=== PATIENT | female | born 1965 | race Caucasian/White ===

== ENCOUNTER → 2017-06-25 | Outpatient (CLI) | payer OTHER ==
[~2017-06-25] MED LIST: ALEN35TA42 PO; ASPI1TAB48 PO; ATOR-24 PO; CLOP1TAB15 PO; DAPA1TAB7 PO; LOSA1TAB PO; LVMIPEN SQ; METO100T44 PO; NTRGSL/4 UT; SERT50TA PO
[2017-06-25 16:48] LABS: BASO % 0.5 %; BASO ABS # 0.05 K/uL (0-0.2); EOS % 0.8 %; EOS ABS # 0.08 K/uL (0-0.5); HEMATOCRIT 47.3 % (37-47); HEMOGLOBIN 16.5 g/dL (12.0-16.0); IG# 0.02 K/uL (0.00-0.02); LYMPH % 15.5 %; LYMPH ABS # 1.49 K/uL (1.2-3.4); MEAN CELL VOLUME 89.6 fL (80-100); MEAN CORPUSCULAR HEMOGLOBIN 31.3 pg (25-34); MEAN CORPUSCULAR HGB CONC 34.9 g/dl (32-36); MEAN PLATELET VOLUME 10.5 fL (7.4-10.4); MONO % 5.2 %; NEUT % 77.8 %; NEUT ABS # 7.49 K/uL (1.4-6.5); PLATELET COUNT 378 K/uL (130-400); RED CELL DISTRIBUTION WIDTH CV 12.7 % (11.5-14.5); RED CELL DISTRIBUTION WIDTH SD 41.7 fL (36.4-46.3); WHITE BLOOD COUNT 9.63 K/uL (4.8-10.8)
[2017-06-25 17:28] LABS: ALBUMIN 4.1 gm/dl (3.4-5.0); ALKALINE PHOSPHATASE 89 U/L (45-117); ALT/SGPT 31 U/L (12-78); AST/SGOT 15 U/L (15-37); BLOOD UREA NITROGEN 16 mg/dl (7-18); CALCIUM 9.6 mg/dl (8.5-10.1); CARBON DIOXIDE 23 mmol/L (21-32); CHOLESTEROL 240 mg/dl (0-200); CREATININE 0.64 mg/dl (0.60-1.20); GLUCOSE 443 mg/dl (70-99); LDL CHOLESTEROL CALCULATED 145 mg/dl; POTASSIUM 4.2 mmol/L (3.5-5.1); SODIUM 131 mmol/L (136-145); TOTAL PROTEIN 7.8 gm/dl (6.4-8.2)
[2017-06-26 05:50] LABS: HEMOGLOBIN A1C 13.4 % (4.5-5.6)
== END | disposition home or self-care (01) ==
LOC: C.LABBFT 11:26
PROVIDERS: ATTEND Internal Medicine
DX: Z00.00 Encounter for general adult medical examination without abnormal findings (principal); E11.9 Type 2 diabetes mellitus without complications; E78.5 Hyperlipidemia, unspecified; I10 Essential (primary) hypertension

== ENCOUNTER 2017-07-08 21:20 | Observation (INO) | payer OTHER ==
[~2017-07-08] VITALS: Ht 149.9 cm; Wt 50.2 kg
[2017-07-08 22:24] LABS: HEMOGLOBIN 16.1 g/dL (12.0-16.0); MEAN CELL VOLUME 90.2 fL (80-100); MEAN CORPUSCULAR HEMOGLOBIN 31.6 pg (25-34); MEAN PLATELET VOLUME 10.1 fL (7.4-10.4); PLATELET COUNT 318 K/uL (130-400); RED CELL DISTRIBUTION WIDTH CV 12.6 % (11.5-14.5); RED CELL DISTRIBUTION WIDTH SD 41.5 fL (36.4-46.3)
--- NOTE | 2017-07-08 22:31 | DIAGNOSTIC IMAGING REPORT ---
CHEST ONE VIEW PORTABLE CLINICAL HISTORY: Atypical chest pain COMPARISON STUDY: No previous studies for comparison. FINDINGS: The cardiac and mediastinal contours are normal. There is no evidence of focal pulmonary consolidation. There is no evidence of failure. No pleural effusions are visualized.[ There is a coronary artery stent versus coronary artery calcification. IMPRESSION: No active disease in the chest. Electronically signed by: Joaquim Garcia M.D. 07/08/2017 10:30 PM Dictated Date/Time: 07/08/2017 10:29 PM
[2017-07-08 22:38] LABS: PTT PATIENT 24.4 SECONDS (21.0-31.0)
[2017-07-08] MEDS ORDERED: ASPIRIN 324 MG CHEW PO STA (22:47)
[2017-07-08] MEDS ORDERED: NITROGLYCERIN 0.4 MG SL PER TAB CHARGE SL STA (22:47)
[2017-07-08 22:48] LABS: CALCIUM 9.5 mg/dl (8.5-10.1); CKMB 0.6 ng/ml (0.5-3.6); CREATININE 0.53 mg/dl (0.60-1.20); POTASSIUM 3.8 mmol/L (3.5-5.1); TOTAL PROTEIN 7.6 gm/dl (6.4-8.2)
[2017-07-08] MEDS ORDERED: PATIENT'S ALLERGY INFO NEEDS ENTERED STA (23:06)
[2017-07-09] VITALS (7 sets, daily range): BP systolic 94–117; BP diastolic 61–68; PULSE 68–77; TEMP 36.4–36.9; O2SAT 95–96; BMI 22.5
[2017-07-09] MEDS ORDERED: ACETAMINOPHEN 500 MG TAB PO ONE (00:04)
[2017-07-09] MEDS ORDERED: LOSA1TAB PO (00:35)
[2017-07-09] MEDS ORDERED: METO100T44 PO (00:36)
[2017-07-09] MEDS ORDERED: ATOR-24 PO (00:37)
[2017-07-09] MEDS ORDERED: LVMIPEN SQ (00:38)
[2017-07-09] MEDS ORDERED: SERT50TA PO (00:39)
[2017-07-09] MEDS ORDERED: ALEN1TAB21 PO (00:40)
[2017-07-09] MEDS ORDERED: DAPA1TAB7 PO (00:42)
[2017-07-09] MEDS ORDERED: NTRGSL/4 UT (00:43)
[2017-07-09] MEDS ORDERED: ASPI1TAB48 PO (00:43)
[2017-07-09] MEDS ORDERED: CLOP1TAB15 PO (00:46)
[2017-07-09] MEDS ORDERED: LORAZEPAM 0.5 MG TAB SL STA (01:13)
[2017-07-09] MEDS ORDERED: MAGNESIUM HYDROXIDE SUSP 30 ML UDC PO PRN (01:15)
[2017-07-09] MEDS ORDERED: POLYETHYLENE (MIRALAX) 17 GM PACK PO PRN (01:15)
[2017-07-09] MEDS ORDERED: ACETAMINOPHEN 325 MG TAB PO PRN (01:15)
[2017-07-09] MEDS ORDERED: ZOLPIDEM TARTRATE 5 MG TAB PO PRN (01:15)
[2017-07-09] MEDS ORDERED: MoRPHine SULFATE 2 MG/ML CARP IV PRN (01:15)
[2017-07-09] MEDS ORDERED: NITROGLYCERIN 0.4 MG SL PER TAB CHARGE SL PRN (01:15)
[2017-07-09] MEDS ORDERED: ALUMINUM/MAGNESIUM/SIMETH (MAALOX MAX) 30 ML UDC PO PRN (01:15)
[2017-07-09] MEDS ORDERED: ONDANSETRON INJ 2 MG/ML 2 ML VIAL IV PRN (01:15)
--- NOTE | 2017-07-09 01:53 | History and Physical ---
History & Physical Date & Time of Service: Jul 09, 2017 at 01:31 Chief Complaint: Chest Pain Primary Care Physician: Brooke Cortes M.D. History of Present Illness Source: patient 52 y/o F Hx DM, CAD - [place] 2014 - single stent to [facility] [place]. Recently relocated form [place]. Developed L CP with radiation into L arm, palpitations and a feeling of indigestion. She has a hard time describing her pain and describes more of a strange sensation in her chest. In the ER her initial trop is normal and her pain had resolved. Her EKG however, initially showed what is likely an accelerated junctional rhythm with a RBBB. A second EKG reverted to a sinus rhythm. She has exhibited both on monitor without recurrence of CP. She denies CP, N/V, diaphoresis. The pt states that she is currently compliant with medications, however, she admits to a recent period of noncompliance for 5 months due to financial difficulties. Past Medical/Surgical History 1) CAD - [place] - stent to [facility] [place] 2014 2) IDDM Family History Mother with premature CAD Social History Smoking Status: Never Smoker Allergies Coded Allergies: No Known Allergies (Unverified , 07/09/17) Home Medications Scheduled Alendronate Sodium (Alendronate Sodium), 35 MG PO WK Aspirin (Aspirin Low Dose), 81 MG PO DAILY Atorvastatin (Lipitor), 40 MG PO HS Clopidogrel (Plavix), 75 MG PO DAILY Dapagliflozin-Metformin HCl (Xigduo Xr 10-1000 mg), 1 TAB PO DAILY Insulin Detemir (Levemir Flextouch), 30 SQ HS Losartan Potassium (Cozaar), 25 MG PO DAILY Metoprolol Succ (Toprol Xl) (Toprol-Xl ), 100 MG PO DAILY Sertraline (Zoloft), 50 MG PO DIRECTED Scheduled PRN Nitroglycerin (Nitrostat), 0.4 MG UT PRN PRN for chest pain Review of Systems Constitutional: No fever, No chills, No sweats Eyes: No worsening of vision ENT: No hearing loss, No unusual epistaxis, No nasal symptoms Respiratory: No cough, No sputum, No wheezing Cardiovascular: + chest pain, + palpitations Abdomen: + problem reported (Indigestion reported), No pain Musculoskeletal: No joint pain Genitourinary - Female: No dysuria, No urinary frequency Neurologic: No memory loss, No paralysis, No weakness Psychiatric: No depression symptoms Endocrine: No fatigue Hematologic / Lymphatic: No abnormal bleeding/bruising Integumentary: No rash Allergic / Immunologic: No environmental allergies Physical Exam Vital Signs Date Time Temp Pulse Resp B/P (MAP) Pulse Ox O2 Delivery O2 Flow Rate FiO2 07/09/17 01:00 75 12 102/73 95 Room Air 07/09/17 00:30 81 17 113/83 95 Room Air 07/09/17 00:00 77 15 111/79 95 Room Air 07/08/17 23:30 89 23 117/88 96 Room Air 07/08/17 23:28 88 07/08/17 23:24 87 07/08/17 23:05 94 16 94/66 95 Room Air 07/08/17 22:11 94 07/08/17 21:25 36.9 91 20 110/74 97 Room Air General Appearance: WD/WN, no apparent distress, + pertinent finding (Thin, middle-aged female - sitting in bed and eating a chicken teriKelly Van Gogh [employer]our hogi) Head: normocephalic Eyes: normal inspection ENT: normal ENT inspection, pharynx normal Neck: supple, no JVD Respiratory/Chest: chest non-tender, lungs clear, normal breath sounds Cardiovascular: regular rate, rhythm, no edema, no gallop, no JVD, no murmur Abdomen/GI: normal bowel sounds, non tender, soft Back: normal inspection, no CVA tenderness, no muscle spasm, normal range of motion Extremities/Musculoskelatal: normal inspection, no calf tenderness, normal capillary refill, no pedal edema, normal range of motion 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, no motor/sensory deficits, alert, oriented x 3 Skin: normal color Diagnostics Laboratory Results Results Past 24 Hours Test 07/08/17 22:05 07/08/17 22:16 Range/Units White Blood Count 8.80 4.8-10.8 K/uL Red Blood Count 5.10 4.2-5.4 M/uL Hemoglobin 16.1 12.0-16.0 g/dL Hematocrit 46.0 37-47 % Mean Corpuscular Volume 90.2 80-100 fL Mean Corpuscular Hemoglobin 31.6 25-34 pg Mean Corpuscular Hemoglobin Concent 35.0 32-36 g/dl RDW Standard Deviation 41.5 36.4-46.3 fL RDW Coefficient of Variation 12.6 11.5-14.5 % Platelet Count 318 130-400 K/uL Mean Platelet Volume 10.1 7.4-10.4 fL Prothrombin Time 10.2 9.0-12.0 SECONDS Prothromb Time International Ratio 1.0 0.9-1.1 Activated Partial Thromboplast Time 24.4 21.0-31.0 SECONDS Partial Thromboplastin Ratio 0.9 Sodium Level 136 136-145 mmol/L Potassium Level 3.8 3.5-5.1 mmol/L Chloride Level 101 98-107 mmol/L Carbon Dioxide Level 24 21-32 mmol/L Anion Gap 10.0 3-11 mmol/L Blood Urea Nitrogen 17 7-18 mg/dl Creatinine 0.53 0.60-1.20 mg/dl Est Creatinine Clear Calc Drug Dose 85.7 ml/min Estimated GFR () 127.4 Estimated GFR (Non- 109.9 BUN/Creatinine Ratio 32.8 10-20 Random Glucose 182 70-99 mg/dl Calcium Level 9.5 8.5-10.1 mg/dl Total Bilirubin 0.4 0.2-1 mg/dl Aspartate Amino Transf (AST/SGOT) 16 15-37 U/L Alanine Aminotransferase (ALT/SGPT) 36 12-78 U/L Alkaline Phosphatase 80 45-117 U/L Total Creatine Kinase 67 26-192 U/L Creatine Kinase MB 0.6 0.5-3.6 ng/ml Creatine Kinase MB Ratio 0.9 0-3.0 Total Protein 7.6 6.4-8.2 gm/dl Albumin 4.0 3.4-5.0 gm/dl Globulin 3.6 2.5-4.0 gm/dl Albumin/Globulin Ratio 1.1 0.9-2 Thyroid Stimulating Hormone (TSH) 3.780 0.300-4.500 uIu/ml Bedside Troponin I < 0.030 0-0.045 ng/ml EKG Initial EKG - reg rhythm, RBBB - cannot discern P wvs - likely junctional - rate 90BPM Second EKG - Sinus - RBBB is absent Impression Assessment and Plan 52 y/o F Hx DM, CAD - [place] 2014 - single stent to [facility] [place]. Recently relocated form [place]. Developed L CP with radiation into L arm, palpitations and a feeling of indigestion. She has a hard time describing her pain and describes more of a strange sensation in her chest. In the ER her initial trop is normal and her pain had resolved. Her EKG however, initially showed what is likely an accelerated junctional rhythm with a RBBB. A second EKG reverted to a sinus rhythm. She has exhibited both on monitor without recurrence of CP. She denies CP, N/V, diaphoresis. 1) CAD - CP - abnormal rhythm - pt is admitted to telemetry. We will obtain an echo and request a cardio consult, Her troponin will be trended, She is placed on ASA and a statin - will hold her B clyde due to her initial EKG. 2) DM - placed on SS with PM Lantus Full code - Lovenox prophylaxis Total time for this admit including review of labs, meds, imaging - discussion with pt and ER attending - 35 min Level of Care Telemetry Resuscitation Status FULL RESUSCITATION VTE Prophylaxis VTE Risk Assessment Done? Y/N: Yes Risk Level: Low Given or contraindicated: Enoxaparin (Lovenox)SQ
[2017-07-09] MEDS ORDERED: IV FLUIDS COMPLETED PRN (02:30)
[2017-07-09] MEDS ORDERED: GLUCOSE 40% GEL 15 GM TUBE PO PRN (05:30)
[2017-07-09] MEDS ORDERED: GLUCAGON FOR INJ 1 MG VIAL SQ PRN (05:30)
[2017-07-09] MEDS ORDERED: GLUCOSE 10 TABS/TUBE PO PRN (05:30)
[2017-07-09] MEDS ORDERED: DEXTROSE 50% 50 ML SYR IV PRN (05:30)
[2017-07-09] MEDS: INSULIN ASPART 100 UNITS/ML 3 ML PEN SC SCH ×4 (06:08→20:44)
--- NOTE | 2017-07-09 06:53 | EMERGENCY ROOM VISIT NOTE ---
History First contact with patient: 22:26 Chief Complaint: CHEST PAIN Stated Complaint: CHEST PAIN, EKG ABNORMALITY Nursing Triage Summary: pt reports started with mid sternal cp at 1900 that radiates into L arm reports increased exertional sob and feels like heart burn History of Present Illness The patient is a 52 year old female who presents to the Emergency Room with complaints of substernal chest pain/pressure which started approximately 3 hours ago. The patient states that she has a feeling of pressure in the center of her chest with associated heartburn. She states the discomfort comes and goes and is not associated with exertion. She rates the discomfort a 6/10. She states that the pain radiates into her left upper arm. The patient reports history of [place] in 2014 with stenting. This was done in [place]. She is an insulin dependent diabetic. She has not seen cardiology here but is scheduled with [facility] cardiology in 2 days. Patient denies shortness of breath, abdominal pain, nausea or vomiting. Review of Systems A complete 10 point review of systems was reviewed with the patient with pertinent positives and negatives as per history of present illness. All else were negative. Past Medical/Surgical History Medical Problems: (1) Chest pain (2) Diabetes mellitus (3) EKG abnormality (4) History of myocardial infarction Social History Smoking Status: Never Smoker Housing Status: lives with family Current/Historical Medications Scheduled Alendronate Sodium (Alendronate Sodium), 35 MG PO WK Aspirin (Aspirin Low Dose), 81 MG PO DAILY Atorvastatin (Lipitor), 40 MG PO HS Clopidogrel (Plavix), 75 MG PO DAILY Dapagliflozin-Metformin HCl (Xigduo Xr 10-1000 mg), 1 TAB PO DAILY Insulin Detemir (Levemir Flextouch), 30 SQ HS Losartan Potassium (Cozaar), 25 MG PO DAILY Metoprolol Succ (Toprol Xl) (Toprol-Xl ), 100 MG PO DAILY Sertraline (Zoloft), 50 MG PO DIRECTED Scheduled PRN Nitroglycerin (Nitrostat), 0.4 MG UT PRN PRN for chest pain Physical Exam Vital Signs Date Time Temp Pulse Resp B/P (MAP) Pulse Ox O2 Delivery O2 Flow Rate FiO2 07/09/17 01:00 75 12 102/73 95 Room Air 07/09/17 00:30 81 17 113/83 95 Room Air 07/09/17 00:00 77 15 111/79 95 Room Air 07/08/17 23:30 89 23 117/88 96 Room Air 07/08/17 23:28 88 07/08/17 23:24 87 07/08/17 23:05 94 16 94/66 95 Room Air 07/08/17 22:11 94 07/08/17 21:25 36.9 91 20 110/74 97 Room Air Physical Exam VITALS: Vitals are noted on the nurse's note and reviewed by myself. Vital signs stable. GENERAL: This is a 52-year-old female, in no acute distress, nondiaphoretic, well-developed well-nourished. SKIN: The skin was without rashes. EARS: External auditory canals clear, tympanic membranes pearly gutierrez without erythema or effusion bilaterally. EYES: Pupils equal round and reactive to light and accommodation. MOUTH: Mucous membranes moist. Tonsils are not enlarged. Pharynx without erythema or exudate. NECK: Supple without nuchal rigidity. No lymphadenopathy. HEART: Regular rate and rhythm without murmurs gallops or rubs. LUNGS: Clear to auscultation bilaterally without wheezes, rales or rhonchi. No retractions or accessory muscle use. ABDOMEN: Positive bowel sounds x 4. Soft, nontender to palpation. MUSCULOSKELETAL: Strength 5/5 throughout. NEURO: Patient was alert and oriented to person place and time. Medical Decision & Procedures ER Provider Diagnostic Interpretation: CHEST ONE VIEW PORTABLE CLINICAL HISTORY: Atypical chest pain COMPARISON STUDY: No previous studies for comparison. FINDINGS: The cardiac and mediastinal contours are normal. There is no evidence of focal pulmonary consolidation. There is no evidence of failure. No pleural effusions are visualized.[ There is a coronary artery stent versus coronary artery calcification. IMPRESSION: No active disease in the chest. Laboratory Results 07/08/17 22:05 07/08/17 22:05 Test 07/08/17 22:05 07/08/17 22:16 Red Blood Count 5.10 M/uL (4.2-5.4) Mean Corpuscular Volume 90.2 fL (80-100) Mean Corpuscular Hemoglobin 31.6 pg (25-34) Mean Corpuscular Hemoglobin Concent 35.0 g/dl (32-36) RDW Standard Deviation 41.5 fL (36.4-46.3) RDW Coefficient of Variation 12.6 % (11.5-14.5) Mean Platelet Volume 10.1 fL (7.4-10.4) Prothrombin Time 10.2 SECONDS (9.0-12.0) Prothromb Time International Ratio 1.0 (0.9-1.1) Activated Partial Thromboplast Time 24.4 SECONDS (21.0-31.0) Partial Thromboplastin Ratio 0.9 Anion Gap 10.0 mmol/L (3-11) Est Creatinine Clear Calc Drug Dose 85.7 ml/min Estimated GFR () 127.4 Estimated GFR (Non- 109.9 BUN/Creatinine Ratio 32.8 (10-20) Calcium Level 9.5 mg/dl (8.5-10.1) Total Bilirubin 0.4 mg/dl (0.2-1) Aspartate Amino Transf (AST/SGOT) 16 U/L (15-37) Alanine Aminotransferase (ALT/SGPT) 36 U/L (12-78) Alkaline Phosphatase 80 U/L (45-117) Total Creatine Kinase 67 U/L (26-192) Creatine Kinase MB 0.6 ng/ml (0.5-3.6) Creatine Kinase MB Ratio 0.9 (0-3.0) Total Protein 7.6 gm/dl (6.4-8.2) Albumin 4.0 gm/dl (3.4-5.0) Globulin 3.6 gm/dl (2.5-4.0) Albumin/Globulin Ratio 1.1 (0.9-2) Thyroid Stimulating Hormone (TSH) 3.780 uIu/ml (0.300-4.500) Bedside Troponin I < 0.030 ng/ml (0-0.045) Medications Administered Medications (Trade) Dose Ordered Sig/Colton Route Start Time Stop Time Status Last Admin Dose Admin Aspirin (Aspirin Chew) 324 mg NOW STAT PO 07/08/17 22:47 07/08/17 22:49 DC 07/08/17 23:04 324 MG Miscellaneous Information (Patient'S Allergy Info Needs Entered) 1 ea ONE STAT N/A 07/08/17 23:06 07/08/17 23:07 DC 07/08/17 23:13 1 EA Acetaminophen (Tylenol Tab) 1,000 mg STK-MED ONCE PO 07/09/17 00:04 07/09/17 00:05 DC 07/09/17 00:06 1,000 MG Lorazepam (Ativan Tab) 0.5 mg NOW STAT SL 07/09/17 01:13 07/09/17 01:14 DC 07/09/17 01:19 0.5 MG ECG Indication: chest pain Rate (beats per minute): 90 Rhythm: other (wide QRS; possible junctional rhythm) Findings: RBBB Change: no significant change Medical Decision Differential diagnosis includes acute coronary syndrome, pulmonary embolism, pneumothorax, pericarditis, myocarditis, endocarditis, anxiety, musculoskeletal pain, GERD, costochondritis, pneumonia, among others. The patient is a 52-year-old female who presents today complaining of substernal chest discomfort. Labs revealed no leukocytosis, anemia or concerning electrolyte abnormalities. Initial troponin was negative. Chest x- ray unremarkable. Patient's initial EKG shows a wide QRS regular rhythm with right bundle branch block at a rate of 90 bpm. On the monitor, patient does have runs of normal sinus rhythm which last for 5-10 seconds at a time before she returns to the abnormal rhythm. After the patient had been here for 1-2 hours, she did switch to a normal sinus rhythm but continued to have short runs of abnormal rhythms. An EKG was performed which showed a normal sinus rhythm at 70 bpm with no evidence of right bundle branch block. The patient did report intermittent symptoms which seem to correlate with abnormal rhythms on the monitor. I did consult Dr. Lopez of cardiology who unfortunately was unable to view the patient's EKG. The patient was admitted to the medical service for further evaluation and treatment. Medication Reconcilliation Current Medication List: was personally reviewed by me Blood Pressure Screening Patient's blood pressure: Normal blood pressure Impression Primary Impression: Abnormal EKG Additional Impression: Chest pain Departure Information Dispostion Still a Patient Referrals Brooke Cortes M.D. (PCP) Forms Call Back Authorization, HOME CARE DOCUMENTATION FORM, IMPORTANT VISIT INFORMATION Patient Instructions [facility] Problem Qualifiers Additional Impression:
[2017-07-09] MEDS ORDERED: SERTRALINE HCL 50 MG TAB PO SCH (09:00)
[2017-07-09] MEDS: METOPROLOL SUCC 50MG EXT REL TAB PO SCH (09:28)
[2017-07-09] MEDS: CLOPIDOGREL BISULFATE 75 MG TAB PO SCH (09:29)
[2017-07-09] MEDS: ASPIRIN 81 MG ECTAB PO SCH (09:29)
[2017-07-09] MEDS: LOSARTAN POTASSIUM 25 MG TAB PO SCH (09:29)
[2017-07-09] MEDS: ENOXAPARIN 40 MG/0.4 ML SYR SC SCH (09:32)
--- NOTE | 2017-07-09 13:27 | Hospitalist Progress Note ---
Hospitalist Progress Note Date of Service Jul 09, 2017. (Edilma Montes PA-C) Subjective Pt evaluation today including: conversation w/ patient, conversation w/ family , physical exam, chart review, lab review, review of studies Pain: None PO Intake: NPO Voiding: no voiding problems The patient was seen and examined this morning. Pt reports feeling well today. She denies any chest pain overnight, no shortness of breath or palpitations. She does report her initial sx felt like nausea/indigestion substernally and this is how her other heart attack felt in 2014. She was doing the dishes when the sensation came on, and then sat down and the sx persisted. There was no radiation into her jaw, back or arms. She has been taking her medications as prescribed. Interestingly, she had been on zoloft, cymbalta and another medication for depression and anxiety and stopped everything about 6 months ago. She was restarted 2 weeks ago on zoloft alone. She does admit to palpitations occasionally but that this is normally under stress. She used to smoke 0.5 ppd x 20 years, but quit 3 years ago. Family hx includes mother with heart disease. ROS: admits to slight headache. Denies visual disturbances, no chest pain, sob, abd pain, n/v/d/c. All other ROS reviewed and negative otherwise. (Edilma Montes, CROW) Objective Vital Signs Date Time Temp Pulse Resp B/P (MAP) Pulse Ox O2 Delivery O2 Flow Rate FiO2 07/09/17 12:03 96 Room Air 07/09/17 12:01 36.7 68 16 99/66 (77) 96 Room Air 07/09/17 12:00 Room Air 07/09/17 08:13 96 Room Air 07/09/17 08:11 36.7 73 16 117/68 (84) 96 Room Air 07/09/17 08:00 Room Air 07/09/17 04:00 Room Air 07/09/17 02:05 36.4 73 18 101/64 Room Air 07/09/17 01:00 75 12 102/73 95 Room Air 07/09/17 00:30 81 17 113/83 95 Room Air 07/09/17 00:00 77 15 111/79 95 Room Air 07/08/17 23:30 89 23 117/88 96 Room Air 07/08/17 23:28 88 07/08/17 23:24 87 07/08/17 23:05 94 16 94/66 95 Room Air 07/08/17 22:11 94 07/08/17 21:25 36.9 91 20 110/74 97 Room Air (Edilma Montes, JEREMIE-C) Physical Exam General Appearance: WD/WN, no apparent distress, + thin Eyes: PERRL, EOMI ENT: hearing grossly normal, pharynx normal Neck: supple, no JVD Respiratory/Chest: chest non-tender, lungs clear, no respiratory distress, no accessory muscle use Cardiovascular: regular rate, rhythm, no edema, no murmur Abdomen: normal bowel sounds, non tender, soft Extremities: non-tender, no pedal edema, no calf tenderness Neurologic/Psychiatric: alert, normal mood/affect, oriented x 3 Skin: normal color, warm/dry (Edilma Montes, CROW) Laboratory Results Last 24 Hours Test 07/08/17 22:05 07/08/17 22:16 07/09/17 05:47 07/09/17 07:10 White Blood Count 8.80 K/uL Red Blood Count 5.10 M/uL Hemoglobin 16.1 g/dL Hematocrit 46.0 % Mean Corpuscular Volume 90.2 fL Mean Corpuscular Hemoglobin 31.6 pg Mean Corpuscular Hemoglobin Concent 35.0 g/dl RDW Standard Deviation 41.5 fL RDW Coefficient of Variation 12.6 % Platelet Count 318 K/uL Mean Platelet Volume 10.1 fL Prothrombin Time 10.2 SECONDS Prothromb Time International Ratio 1.0 Activated Partial Thromboplast Time 24.4 SECONDS Partial Thromboplastin Ratio 0.9 Sodium Level 136 mmol/L Potassium Level 3.8 mmol/L Chloride Level 101 mmol/L Carbon Dioxide Level 24 mmol/L Anion Gap 10.0 mmol/L Blood Urea Nitrogen 17 mg/dl Creatinine 0.53 mg/dl Est Creatinine Clear Calc Drug Dose 85.7 ml/min Estimated GFR () 127.4 Estimated GFR (Non- 109.9 BUN/Creatinine Ratio 32.8 Random Glucose 182 mg/dl Calcium Level 9.5 mg/dl Total Bilirubin 0.4 mg/dl Aspartate Amino Transf (AST/SGOT) 16 U/L Alanine Aminotransferase (ALT/SGPT) 36 U/L Alkaline Phosphatase 80 U/L Total Creatine Kinase 67 U/L Creatine Kinase MB 0.6 ng/ml Creatine Kinase MB Ratio 0.9 Total Protein 7.6 gm/dl Albumin 4.0 gm/dl Globulin 3.6 gm/dl Albumin/Globulin Ratio 1.1 Thyroid Stimulating Hormone (TSH) 3.780 uIu/ml Bedside Troponin I < 0.030 ng/ml Bedside Glucose 185 mg/dl 164 mg/dl Test 07/09/17 11:00 07/09/17 11:15 Bedside Glucose 136 mg/dl Troponin I < 0.015 ng/ml (Edilma Montes PA-C) Assessment and Plan 52 y/o F Hx DM, CAD - [place] 2014 - single stent to [facility] [place]. Recently relocated form [place]. Developed L CP with radiation into L arm, palpitations and a feeling of indigestion. She has a hard time describing her pain and describes more of a strange sensation in her chest. In the ER her initial trop is normal and her pain had resolved. Her EKG however, initially showed what is likely an accelerated junctional rhythm with a RBBB. A second EKG reverted to a sinus rhythm. CAD x 1 stent Hx [place] in 2014 Remote smoking history CP - abnormal rhythm - pt is admitted to telemetry. EKG has reverted back to NSR on last check. No overnight events on tele. - Echo ordered- await results - Cardiology to see - pt had been scheduled with Dr. Lopez as an outpatient for today. - Troponin neg x 2 - Cont ASA and plavix, atorvastatin 40 mg HS, metoprolol succ 100 mg QAM, losartan 25 mg QHS - Add lipid panel to am labs tomorrow DM - Check A1C - placed on SS with PM Lantus 30 U HS Depression Anxiety - Continue zoloft 25 mg daily DVT ppx: lovenox, ambulatory CODE: Full code Dispostion: From home, possible d/c within 24 hours. 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 Discussed with JEREMIE Montes and agree with findings and plan as documented in the note. Any exceptions or clarifications are listed here: Pt denies any further palpitations since being here on the floor. No CP. Describes many months of intermittent tension-type headaches and worsening distance vision. Had no health insurance until very recently and was not on any meds at all. Discussed case with Cardiology. Vitals reviewed NAD RRR no mgr CTAB no wcr ABd soft NT ND +BS Ext no edema, good cap refill < 2 sec ECG with ventricular rhythm, RBBB; repeat ECG NSR ECHO with normal EF and no WMA, no valvular disease 52 yo female with a h/o CAD, HTN, HL, DMII, anxiety, here with palpitations and ventricular arrhythmia. No syncope. Troponins negative x 2. ECHO with normal EF -continue beta clyde -stress ECHO tomorrow rto assess for ischemia as cause of ventricular arrhythmia -may need EP study Documented By: Nuris Lowery (Nuris Lowery MD)
--- NOTE | 2017-07-09 16:20 | ECHOCARDIOGRAM REPORT ---
*NOTICE TO RECEIVING [employer] AGENCY This information is strictly Confidential and protected under [place] law. [place] law prohibits you from making any further disclosure of this information unless further disclosure is expressly permitted by the written consent of the person to whom it pertains or is authorized by law. A general authorization for the release of medical or other information is not sufficient for this purpose. Hospital accepts no responsibility if the information is made available to any other person, INCLUDING THE PATIENT. Interpretation Summary * Conclusions -- * 1. Normal LV size. Normal LV wall thickness. * 2. Normal LV systolic function. LVEF 60-65%. No regional wall motion abnormalities. * 3. Normal RV size and function. * 4. No significant valvular pathology. * 5. Normal estimated PA and RA pressures. * 6. No prior studies for comparison. Procedure Details * A complete two-dimensional transthoracic echocardiogram was performed (2D, M-mode, Doppler and color flow Doppler). * Name: CHANDAN BERNSTEIN Study Date: 07/09/2017 02:13 PM BP: 99/66 mmHg Patient Location: [facility]\S\1 HR: 68 : 1965 (M/d/yyyy) Gender: Female Height: 59 in Age: 52 yrs Ethnicity: [place] Weight: 112 lb Ordering Physician: Carter Raphael Referring Physician: Self, Referred Performed By: Inga Carcamo RCS Reason For Study: Chest pain w junctional rhythm BSA: 1.4 m2 Left Ventricle * The left ventricle is grossly normal size. * There is normal left ventricular wall thickness. * Ejection Fraction = 60-65%. * No regional wall motion abnormalities noted. Right Ventricle * The right ventricle is grossly normal size. * The right ventricular systolic function is normal as assessed by tricuspid annular plane systolic excursion (TAPSE) (normal >1.5 cm). Atria * The left atrial size is normal. * Right atrial size is normal. * No ASD detected; PFO is not assessed. Mitral Valve * The mitral valve leaflets appear thickened, but open well. * There is mild mitral annular calcification. * There is no mitral valve stenosis. * Significant mitral regurgitation is absent. Tricuspid Valve * There is trace tricuspid regurgitation. Aortic Valve * The aortic valve opens well. * The aortic valve is trileaflet. * No hemodynamically significant valvular aortic stenosis. * There is no significant aortic regurgitation. Pulmonic Valve * The pulmonary valve is inadequately visualized, but the Doppler data is adequate for interpretation. * Pulmonic stenosis is absent. * Trace pulmonic valvular regurgitation. Great Vessels * The aortic root and proximal ascending aorta are normal sized. Pericardium/Pleural * There is no pericardial effusion. Great Vessels * Normal inferior vena cava size and collapsability with sniff indicates a normal right atrial pressure of 3 mmHg * There is no evidence of pulmonary hypertension. The PA systolic pressure is less than 36 mmHg. MMode 2D Measurements and Calculations IVSd 0.90 cm IVSs 1.2 cm LVIDd 4.4 cm LVIDs 2.9 cm LVPWd 0.92 cm LVPWs 1.2 cm IVS/LVPW 0.98 FS 35.3 % EDV(Teich) 88.9 ml ESV(Teich) 31.2 ml EF(Teich) 64.9 % EDV(cubed) 86.7 ml ESV(cubed) 23.5 ml EF(cubed) 73.0 % % IVS thick 34.2 % % LVPW thick 31.1 % LV mass(C)d 130.7 grams LV mass(C)dI 90.7 grams/m\S\2 LV mass(C)s 102.9 grams LV mass(C)sI 71.4 grams/m\S\2 SV(Teich) 57.7 ml SI(Teich) 40.1 ml/m\S\2 SV(cubed) 63.3 ml SI(cubed) 43.9 ml/m\S\2 Ao root diam 2.9 cm Ao root area 6.4 cm\S\2 ACS 1.5 cm LA dimension 3.2 cm asc Aorta Diam 2.6 cm LA/Ao 1.1 EDV(MOD-sp4) 62.5 ml ESV(MOD-sp4) 23.4 ml EF(MOD-sp4) 62.5 % EDV(MOD-sp2) 51.6 ml ESV(MOD-sp2) 15.1 ml EF(MOD-sp2) 70.6 % SV(MOD-sp4) 39.1 ml SI(MOD-sp4) 27.1 ml/m\S\2 SV(MOD-sp2) 36.4 ml SI(MOD-sp2) 25.3 ml/m\S\2 Doppler Measurements and Calculations MV E max ward 77.6 cm/sec MV A max ward 100.8 cm/sec MV E/A 0.77 MV P1/2t max ward 75.5 cm/sec MV P1/2t 61.7 msec MVA(P1/2t) 3.6 cm\S\2 MV dec slope 358.2 cm/sec\S\2 MV dec time 0.21 sec Ao V2 max 132.9 cm/sec Ao max PG 7.1 mmHg Ao max PG (full) 4.0 mmHg LV V1 max PG 3.1 mmHg LV V1 max 87.7 cm/sec PA V2 max 79.4 cm/sec PA max PG 2.5 mmHg TR max ward 150.6 cm/sec
--- NOTE | 2017-07-09 16:45 | Discharge Instructions ---
Discharge Instructions Date of Service Jul 09, 2017. Admission Reason for Admission: Chest Pain, Ekg Abnormality Discharge Discharge Diagnosis / Problem: Chest pain Discharge Goals Goal(s): Decrease discomfort, Improve function, Increase independence, Improve disease control Activity Recommendations Activity Limitations: resume your previous activity Lifting Limitations: no more than 25 pounds, gradually increase as tolerated Exercise/Sports Limitations: rest today, gradually increase as tolerated May Resume Sexual Activity: when tolerated Shower/Bathe: no limitations Driving or Machine Use: no limitations . Instructions / Follow-Up Instructions / Follow-Up You were admitted to [facility] with chest pain and diagnosed with atypical chest pain secondary to indigestion. During your stay here you were treated with supportive care, cardiac enzymes negative times, EKG returned to normal, and cardiology was consulted. Imaging studies which were completed include echocardiogram, and were normal. Medications: Continue taking your medications as prescribed. Appointment: Follow up with your Primary Care Provider within 1 week. Follow-up with cardiology as an outpatient within 1-2 weeks. Current Hospital Diet Patient's current hospital diet: AHA Diet (Heart Healthy), Diabetes Type 2 Diet Discharge Diet Recommended Diet: AHA Diet (Heart Healthy), Diabetes Type 2 Diet Pending Studies Studies pending at discharge: no Laboratory Results Hemoglobin A1c Test 07/09/17 13:50 Range/Units Lipid Panel Test 06/25/17 11:38 Range/Units Triglycerides Level 255 H 0-150 mg/dl Cholesterol Level 240 H 0-200 mg/dl HDL Cholesterol 44 mg/dl Cholesterol/HDL Ratio 5.5 LDL Cholesterol, Calculated 145 mg/dl Medical Emergencies . Who to Call and When: Medical Emergencies: If at any time you feel your situation is an emergency, please call 911 immediately. . Non-Emergent Contact Non-Emergency issues call your: Primary Care Provider, Sales Project Administrator Call Non-Emergent contact if: you have a fever, temperature is above 100.5, your pain is not controlled, your pain is worsening, your pain is unusual for you, your pain is concerning you, you have any medication questions other concerns with your health. Call 911 or go directly to the Emergency Department if you experience any of the following: Chest pain, chest tightness, shortness of breath, abdominal pain , lightheadedness, dizziness, gastrointestinal bleeding, or have any other concerns regarding your health. . Past History Medical & Surgical History: (1) H/O heart artery stent (2) CAD (coronary artery disease) (3) Chest pain (4) Abnormal EKG (5) History of myocardial infarction (6) Diabetes mellitus . "Provider Documentation" section prepared by Arielle Montes. . VTE Core Measure Inpt VTE Proph given/why not?: Enoxaparin (Lovenox)SQ
--- NOTE | 2017-07-09 16:59 | Cardiology Consultation ---
Cardiology Consultation Date of Consultation: Jul 09, 2017. Requesting Physician: Dr. Raphael Reason for Consultation: Palpitations, coronary artery disease Pt evaluation today including: conversation w/ patient, physical exam, lab review, review of studies, review of inpatient medication list, conversation w/ attending History of Present Illness This is a 52-year-old woman who has a history of hypertension, diabetes, hyperlipidemia and coronary artery disease, this includes a myocardial infarction on 09/29/2014 where she had coronary intervention with a stent placed in the obtuse marginal. At catheterization on that day she had an occluded mid LAD stenosis, 50% mid circumflex stenosis and a occluded proximal obtuse marginal branch with a 70% ostial right coronary artery and a 60% proximal right coronary artery stenosis. This information is based on a cardiology follow-up note in our records, not on review of the catheterization films. This took place elsewhere. She had been maintained on atorvastatin, aspirin, Plavix and metoprolol. Yesterday for the first time she noticed an unusual sensation in her chest, it sounds more like a description of palpitations then chest discomfort but she has trouble explaining it. Of note, her discomfort at the time of her myocardial infarction was back pain, she has had none of that. The symptoms were not exertional on presentation, they occurred at rest. She has not had exertional symptoms, does not have exertional chest discomfort or shortness of breath. She has noted no change in her exercise ability lately and has no edema. She is had no lightheadedness, dizziness, presyncope or syncope. On presentation here she was noted to have a wide complex rhythm at around 90 bpm which appeared ventricular, her cardiac enzymes have been negative and she has not had recurrence of this arrhythmia. Past Medical/Surgical History (1) History of myocardial infarction (2) Diabetes mellitus (3) CAD (coronary artery disease) Social History Smoking Status: Never Smoker History of Alcohol Use: No Review of Systems Constitutional: No fever, No weight loss, No weakness Respiratory: No cough, No wheezing, No shortness of breath, No dyspnea on exertion Cardiac: + see HPI, + palpitations, No chest pain, No orthopnea, No PND, No edema Abdomen: No pain, No nausea, No vomiting, No diarrhea, No GI bleeding Female : No problem reported Neurologic: No paralysis, No weakness, No numbness/tingling, No balance problems Heme: No abnormal bleeding/bruising, No clotting problems Endo: No fatigue Skin: No problem reported All Other Systems: Reviewed and Negative Allergies Coded Allergies: No Known Allergies (Unverified , 07/09/17) Medications Current Inpatient Medications Medications (Trade) Dose Ordered Sig/Colton Route Start Time Stop Time Status Last Admin Dose Admin Enoxaparin Sodium (Lovenox Inj) 40 mg Q24H SC 07/09/17 09:00 08/08/17 08:59 07/09/17 09:32 40 MG Acetaminophen (Tylenol Tab) 650 mg Q4H PRN PO 07/09/17 01:15 08/08/17 01:14 Al Hydrox/Mg Hydrox/Simethicone (Maalox Max Susp) 15 ml Q4H PRN PO 07/09/17 01:15 08/08/17 01:14 Magnesium Hydroxide (Milk Of Magnesia Susp) 30 ml Q12H PRN PO 07/09/17 01:15 08/08/17 01:14 Zolpidem Tartrate (Ambien Tab) 5 mg HSZ PRN PO 07/09/17 01:15 08/08/17 01:14 Ondansetron HCl (Zofran Inj) 4 mg Q6H PRN IV 07/09/17 01:15 08/08/17 01:14 Nitroglycerin (Nitrostat Tab) 0.4 mg UD PRN SL 07/09/17 01:15 08/08/17 01:14 Morphine Sulfate (MoRPHine SULFATE INJ) 2 mg Q30M PRN IV 07/09/17 01:15 07/23/17 01:14 Polyethylene (Miralax Powder Packet) 17 gm DAILY PRN PO 07/09/17 01:15 08/08/17 01:14 Aspirin (Ecotrin Tab) 81 mg DAILY PO 07/09/17 09:00 08/08/17 08:59 07/09/17 09:29 81 MG Atorvastatin Calcium (Lipitor Tab) 40 mg HS PO 07/09/17 21:00 08/08/17 20:59 Clopidogrel Bisulfate (plAVix TAB) 75 mg DAILY PO 07/09/17 09:00 08/08/17 08:59 07/09/17 09:29 75 MG Insulin Detemir (Levemir Flexpen/ FlexTouch) 30 units HS SQ 07/09/17 21:00 08/08/17 20:59 Losartan Potassium (coZAAR TAB) 25 mg DAILY PO 07/09/17 09:00 08/08/17 08:59 07/09/17 09:29 25 MG Metoprolol Succinate (Toprol Xl Tab) 100 mg DAILY PO 07/09/17 09:00 08/08/17 08:59 07/09/17 09:28 100 MG Sertraline HCl (Zoloft Tab) 50 mg DAILY PO 07/09/17 09:00 08/08/17 08:59 07/09/17 09:29 50 MG Insulin Aspart (novoLOG ASPART) SLIDING SCALE G... Q6 SC 07/09/17 06:00 08/08/17 05:59 07/09/17 06:08 1 UNITS Miscellaneous (Iv Fluids Completed) 1 ea PRN PRN N/A 07/09/17 02:30 07/09/18 02:29 Glucose (Glucose 40% Gel) 15-30 GRAMS 15 GRAMS... UD PRN PO 07/09/17 05:30 08/08/17 05:29 Glucose (Glucose Chew Tab) 4-8 Tablets 4 Tabl... UD PRN PO 07/09/17 05:30 08/08/17 05:29 Dextrose (Dextrose 50% 50ML Syringe) 25-50ML OF 50% DW IV FOR... UD PRN IV 07/09/17 05:30 08/08/17 05:29 Glucagon (Glucagon Inj) 1 mg UD PRN SQ 07/09/17 05:30 08/08/17 05:29 Physical Exam Vital Signs Past 12 Hours Date Time Temp Pulse Resp B/P (MAP) Pulse Ox O2 Delivery O2 Flow Rate FiO2 07/09/17 13:26 36 07/09/17 12:03 96 Room Air 07/09/17 12:01 36.7 68 16 99/66 (77) 96 Room Air 07/09/17 12:00 Room Air 07/09/17 08:13 96 Room Air 07/09/17 08:11 36.7 73 16 117/68 (84) 96 Room Air 07/09/17 08:00 Room Air 07/09/17 04:00 Room Air Constitutional: General Apperance: heathly-appearing Level of Distress: NAD Psychiatric: Mental Status: active & alert Head: normocephalic Eyes: EOM: EOMI ENMT: normal ENT inspection, hearing grossly normal Neck: supple, no masses Lungs: Respiratory effort: no dyspnea, good air movement Auscultation: breath sounds normal, no wheezing Cardiovascular: Heart Auscultation: RRR, no murmurs, no rubs, no gallops Peripheral Pulses: Bruits: none appreciated Abdomen: Bowel Sounds: normal Inspection & Palpation: soft, no tenderness, guarding & rebound, no masses Musculoskeletal: normal strength (5/5 throughout) Extremities: no edema Neurologic: Cranial Nerves: grossly intact Sensation: grossly intact Data Laboratory Results: Last 24 Hours Test 07/08/17 22:05 07/08/17 22:16 07/09/17 05:47 07/09/17 07:10 White Blood Count 8.80 K/uL Red Blood Count 5.10 M/uL Hemoglobin 16.1 g/dL Hematocrit 46.0 % Mean Corpuscular Volume 90.2 fL Mean Corpuscular Hemoglobin 31.6 pg Mean Corpuscular Hemoglobin Concent 35.0 g/dl RDW Standard Deviation 41.5 fL RDW Coefficient of Variation 12.6 % Platelet Count 318 K/uL Mean Platelet Volume 10.1 fL Prothrombin Time 10.2 SECONDS Prothromb Time International Ratio 1.0 Activated Partial Thromboplast Time 24.4 SECONDS Partial Thromboplastin Ratio 0.9 Sodium Level 136 mmol/L Potassium Level 3.8 mmol/L Chloride Level 101 mmol/L Carbon Dioxide Level 24 mmol/L Anion Gap 10.0 mmol/L Blood Urea Nitrogen 17 mg/dl Creatinine 0.53 mg/dl Est Creatinine Clear Calc Drug Dose 85.7 ml/min Estimated GFR () 127.4 Estimated GFR (Non- 109.9 BUN/Creatinine Ratio 32.8 Random Glucose 182 mg/dl Calcium Level 9.5 mg/dl Total Bilirubin 0.4 mg/dl Aspartate Amino Transf (AST/SGOT) 16 U/L Alanine Aminotransferase (ALT/SGPT) 36 U/L Alkaline Phosphatase 80 U/L Total Creatine Kinase 67 U/L Creatine Kinase MB 0.6 ng/ml Creatine Kinase MB Ratio 0.9 Total Protein 7.6 gm/dl Albumin 4.0 gm/dl Globulin 3.6 gm/dl Albumin/Globulin Ratio 1.1 Thyroid Stimulating Hormone (TSH) 3.780 uIu/ml Bedside Troponin I < 0.030 ng/ml Bedside Glucose 185 mg/dl 164 mg/dl Test 07/09/17 11:00 07/09/17 11:15 07/09/17 13:50 Bedside Glucose 136 mg/dl Troponin I < 0.015 ng/ml Imaging: Chest x-ray shows no active disease EKG: Her initial electrocardiogram showed ventricular rhythm with a right bundle branch block pattern suggesting a left ventricular focus, technically it is an accelerated ventricular rhythm not ventricular tachycardia due to the heart rate. Subsequent electrocardiograms show sinus rhythm and are normal. Telemetry reviewed: On telemetry her initial rhythm is this ventricular rhythm described above, which is taken over by sinus rhythm shortly after admission. She is remained in sinus rhythm since. Echocardiogram: Normal left ventricular size and function, no wall motion abnormalities. Assessment & Plan #1. Palpitations: Her presentation with palpitations seems to coincide with this ventricular rhythm slow, no other arrhythmia has been identified. #2. Accelerated ventricular rhythm: The cause of this is not clear, the morphology suggests a left ventricular focus, probably lateral or posterior, which would be consistent with location of her prior myocardial infarction although she does not seem to have wall motion abnormalities in that area. It is very possibly scar related, however due to this low rate is possibly not an issue. If it becomes more problematic we could consider ablation (she would be a good ablation candidate due to the slow rate although left-sided ablations are not terribly successful). At this point I would simply observe, other options might be antiarrhythmic therapy or going up on her beta blockade but there is probably very little danger to this rhythm and she does not seem to have any symptoms to suggest a more serious arrhythmia. There does not appear to be any active ischemia based on cardiac enzymes and her electrocardiogram when she is not in the ventricular rhythm. I would keep her on telemetry while she is here. #3. Coronary disease: I would recommend a stress test, she has known disease in this appears to be a change in her symptomatology but does not seem to be typically ischemic. I would like to get a stress echo however to make sure this is not an unusual presentation of myocardial ischemia. I will arrange that for tomorrow. Thank you for allowing me to participate in her care.
[2017-07-09] MEDS ORDERED: NURSING DECISION MEDICATION ORDER SCH (17:45)
[2017-07-09] MEDS ORDERED: ATORVASTATIN 40 MG TAB PO SCH (21:00)
[2017-07-09] MEDS ORDERED: INSULIN DETEMIR FLEXPEN/FLEX TOUCH 100 UNITS/ML 3ML SQ SCH (21:00)
[2017-07-10] VITALS (7 sets, daily range): BP systolic 92–112; BP diastolic 55–72; PULSE 61–75; TEMP 36.4–36.8; O2SAT 95–97; Ht 149.9 cm; Wt 50.2 kg
[2017-07-10 05:47] LABS: HEMOGLOBIN A1C 12.6 % (4.5-5.6)
[2017-07-10] MEDS: INSULIN ASPART 100 UNITS/ML 3 ML PEN SC SCH ×2 (08:10→12:40)
[2017-07-10] MEDS: METOPROLOL SUCC 50MG EXT REL TAB PO SCH (09:00)
[2017-07-10] MEDS: CLOPIDOGREL BISULFATE 75 MG TAB PO SCH (12:43)
[2017-07-10] MEDS: LOSARTAN POTASSIUM 25 MG TAB PO SCH (12:43)
[2017-07-10] MEDS: ASPIRIN 81 MG ECTAB PO SCH (12:44)
[2017-07-10] MEDS: ENOXAPARIN 40 MG/0.4 ML SYR SC SCH (12:45)
--- NOTE | 2017-07-10 13:06 | EXERCISE STRESS ECHO ---
*NOTICE TO RECEIVING [employer]ENCY This information is strictly Confidential and protected under [place] law. [place] law prohibits you from making any further disclosure of this information unless further disclosure is expressly permitted by the written consent of the person to whom it pertains or is authorized by law. A general authorization for the release of medical or other information is not sufficient for this purpose. Hospital accepts no responsibility if the information is made available to any other person, INCLUDING THE PATIENT. Interpretation Summary * Name: CHANDAN BERNSTEIN Study Date: 07/10/2017 09:11 AM BP: 82/63 mmHg * Patient Location: [facility]\S\N289\S\1 HR: 70 * : 1965 (M/d/yyyy) Gender: Female Height: 59 in * Age: 52 yrs Ethnicity: [place] Weight: 111 lb * Ordering Physician: Wilman Somers * Referring Physician: Self, Referred * Performed By: Amanda Arevalo [facility] * * Reason For Study: CHEST PAIN * BSA: 1.4 m2 * -- Conclusions -- * 1. Negative exercise stress echo for ischemia at 90% MPHR. * 2. Negative exercise ECG. No exercise induced arrhythmia. * 3. Average functional capacity for age. Exercised 7:03, achieving 8.6 METS. * 4. Normal hemodynamic response to excercise. No exercise induced chest pain. * 5. Normal resting LV size and function. See study from 07/09/2017 for details. Procedure Details * ECHOEX, CPT #46327 Left Ventricular Findings with Stress * This was essentially a normal study. Left Ventricle * The left ventricle is grossly normal size. * There is normal left ventricular wall thickness. * Ejection Fraction = 60-65%. * Resting wall motion: Normal. Stress wall motion: Appropriate increase in Left ventricular systolic function and decrease in cavity size. No stress induced segmental wall motion abnormalities. Right Ventricle * The right ventricle is grossly normal size. * The right ventricular systolic function is normal as assessed by tricuspid annular plane systolic excursion (TAPSE) (normal >1.5 cm). Stress Parameters * Normal baseline electrocardiogram. * Stress ECG: No ST changes. No arrhythmias. * No arrhythmia were noted with stress. * The stress portion of this study was personally supervised by the undersigned interpreting physician. * Rest heart rate was '70' BPM. * Rest blood pressure was '82/63' * Maximum heart rate achieved was 153 bpm. * Maximum heart rate was 90 % of maximum age-predicted heart rate. * Maximum blood pressure was '173/79' * Total exercise time was '07:03' * Maximum exercise MET level achieved was '8.60' METS * Maximum treadmill speed was '3.40' miles per hour. * Maximum treadmill elevation was '14.00'% grade. Left Ventricular Findings with Stress * The study was technically good with many images being of high quality.
--- NOTE | 2017-07-10 15:18 | Discharge Instructions ---
Discharge Instructions Date of Service Jul 10, 2017. Admission Reason for Admission: Chest Pain, Ekg Abnormality Discharge Discharge Diagnosis / Problem: Chest Pain and Palpitations Discharge Goals Goal(s): Decrease discomfort, Improve function, Increase independence Activity Recommendations Activity Limitations: resume your previous activity . Instructions / Follow-Up Instructions / Follow-Up Chest Pain and Palpitations (Extra Beats): - You had a ventricular rhythm on presentation (this is when the bottom of the heart is where the electrical current of your heart is coming from) however this resolved on its own and your heart is pumping and in a normal rhythm. Your stress test was negative for any further arrhythmias and your heart is functioning well when you exert yourself. - Continue your medications as previously prescribed and you will need to follow -up with cardiology. Diabetes: - You A1c is 12 (this is estimate of how your sugars run over 3 months) this number should get closer to 6. - Diabetes can drastically increase your risk of heart issues and getting good control is necessary - Will not change your medications as you were just recently started on these. But please follow-up with your family doctor to discuss this - Recommend to follow a low carbohydrate diet and to exercise (even just a short walk most days of the week) is a good starting point Current Hospital Diet Patient's current hospital diet: AHA Diet (Heart Healthy), Diabetes Type 2 Diet Discharge Diet Recommended Diet: Diabetes Type 2 Diet Pending Studies Studies pending at discharge: no Laboratory Results Hemoglobin A1c Test 07/09/17 13:50 Range/Units Estimated Average Glucose 315 mg/dl Hemoglobin A1c 12.6 H 4.5-5.6 % Lipid Panel Test 07/10/17 07:20 Range/Units Triglycerides Level 117 0-150 mg/dl Cholesterol Level 130 0-200 mg/dl HDL Cholesterol 32 mg/dl Cholesterol/HDL Ratio 4.1 LDL Cholesterol, Calculated 75 mg/dl Medical Emergencies . Who to Call and When: Medical Emergencies: If at any time you feel your situation is an emergency, please call 911 immediately. . Non-Emergent Contact Non-Emergency issues call your: Primary Care Provider Call Non-Emergent contact if: you have a fever, your pain is concerning you, you have any medication questions . . "Provider Documentation" section prepared by Azucena Robin. . VTE Core Measure Inpt VTE Proph given/why not?: Enoxaparin (Lovenox)SQ
--- NOTE | 2017-07-10 17:52 | Discharge Summary ---
Discharge Summary Date of Service Jul 10, 2017. Discharge Summary Admission Date: Jul 09, 2017 at 01:15 Discharge Date: Jul 10, 2017 Discharge Disposition: Home Principal Diagnosis: Chest Pain; Accelerated Ventricular Rhythm Problems/Secondary Diagnoses: 1. CAD S/P NM and PCI 2. T2DM, Uncontrolled Generalized anxiety disorder Osteopenia HTN Procedures: STRESS ECHOCARDIOGRAM: 1. Negative exercise stress echo for ischemia at 90% MPHR. 2. Negative exercise ECG. No exercise induced arrhythmia. 3. Average functional capacity for age. Exercised 7:03, achieving 8.6 METS. 4. Normal hemodynamic response to excercise. No exercise induced chest pain. 5. Normal resting LV size and function. See study from 07/09/2017 for details. ECHOCARDIOGRAM: 1. Normal LV size. Normal LV wall thickness. 2. Normal LV systolic function. LVEF 60-65%. No regional wall motion abnormalities. 3. Normal RV size and function. 4. No significant valvular pathology. 5. Normal estimated PA and RA pressures. 6. No prior studies for comparison. Consultations: 1. Cardiology Medication Reconciliation Continued Medications: Alendronate Sodium (Alendronate Sodium) 35 Mg Tab 35 MG PO WK for 84 Days, #12 TAB 3 Refills Aspirin (Aspirin Low Dose) 81 Mg Tab 81 MG PO DAILY Atorvastatin (Lipitor) 40 Mg Tab 40 MG PO HS, TAB Clopidogrel (Plavix) 75 Mg Tab 75 MG PO DAILY, TAB Dapagliflozin-Metformin HCl (Xigduo Xr 10-1000 mg) 1 Tab Tab 1 TAB PO DAILY Insulin Detemir (Levemir Flextouch) 100 Unit/Ml Inj 30 SQ HS Losartan Potassium (Cozaar) 25 Mg Tab 25 MG PO DAILY, TAB Metoprolol Succ (Toprol Xl) (Toprol-Xl ) 100 Mg Tabcr 100 MG PO DAILY, TAB Nitroglycerin (Nitrostat) 0.4 Mg Tab 0.4 MG UT PRN PRN for chest pain, BTL Sertraline (Zoloft) 50 Mg Tab 50 MG PO DIRECTED, TAB Discharge Exam ROS: General/Constitutional: Denies fever/chills, fatigue, weakness ENT: Denies nasal drainage, hearing loss, sore throat, trouble swallowing Cardiovascular: Denies chest pain, palpitations, edema Respiratory: Denies cough, sputum, SOB, wheezing, orthopnea GI: Denies nausea, vomiting, abdominal pain, constipation, diarrhea, melena/ hematochezia : Denies dysuria, frequency, hematuria Musculoskeletal: Denies joint/muscle aches Neurologic: Denies dizziness/lightheadedness, numbness/tingling, weakness Hematologic/Lymphatic: Denies bleeding/clotting abnormalities Skin: Denies rash General Appearance: WDWN in NAD who is A&O x 3 HEENT: Head is normocephalic/atraumatic; Hearing grossly intact; Mucous membranes moist; Pharynx negative for exudate/lesions Neck: Supple; Trachea midline; Neg JVD Heart: RRR with no M/G/R Lungs: CTA in all lung perrin bilaterally; Respirations unlabored; Neg accessory muscle use Abdomen: Soft, non-tender, non-distended; Positive BS x 4 quadrants Extremities: Neg cyanosis or edema Neurological: Speech clear; Neg focal neurologic deficits Psychiatric: Appropriate mood/affect Skin: Normal Color; Warm/Dry Hospital Course ADMISSION: 52 y/o F Hx DM, CAD - [place] 2014 - single stent to [facility] [place]. Recently relocated form [place]. Developed L CP with radiation into L arm, palpitations and a feeling of indigestion. She has a hard time describing her pain and describes more of a strange sensation in her chest. In the ER her initial trop is normal and her pain had resolved. Her EKG however, initially showed what is likely an accelerated junctional rhythm with a RBBB. A second EKG reverted to a sinus rhythm. She has exhibited both on monitor without recurrence of CP. She denies CP, N/V, diaphoresis. The pt states that she is currently compliant with medications, however, she admits to a recent period of noncompliance for 5 months due to financial difficulties. HOSPITAL COURSE: Ms. Ceron was admitted for chest pain and repetitive monomorphic ventricular rhythm. However, with this ventricular rhythm she maintained adequate rate control with no evidence of tachycardia. She spontaneously converted to normal sinus rhythm. Cardiac enzymes obtained and negative. She underwent stress testing that was negative for ischemic findings. Echocardiogram did not reveal any wall motion abnormalities with EF of 60-65%. During admission, patient's A1c reveals a level of 12. Did not make changes to her current diabetes management as she reports she just restarted this 2 weeks ago. Patient states she lost insurance and has been off her antidiabetic medications for a couple months prior to this. Did educate patient on dietary changes and to follow-up with PCP for further management. Patient was continued on her previously prescribed medications without any adjustments. She will follow-up with cardiology in the next couple weeks. Total Time Spent: Greater than 30 minutes This includes examination of the patient, discharge planning, medication reconciliation, and communication with other providers. Discharge Instructions Please refer to the electronic Patient Visit Report (Discharge Instructions) for additional information. Additional Copies To Brooke Cortes M.D.; Wilman Somers M.D. Reviewed: Pt Seen/Exam by Me History Physician Campus Security Officer Supervision Note: I interviewed and examined the patient. Discussed with JEREMIE Robin and agree with findings and plan as documented in the note. Any exceptions or clarifications are listed here: No further arrhythmias on tele. No palpitations. Had normal Stress ECHO today. Discussed case with Cardiology who saw her today and discussed plans. Vitals reviewed NAD RRR no mgr CTAB no wcr ABd soft NT ND +BS Ext no edema, good cap refill < 2 sec ECG with ventricular rhythm, RBBB; repeat ECG NSR ECHO with normal EF and no WMA, no valvular disease Stress ECHO normal 52 yo female with a h/o CAD, HTN, HL, DMII, anxiety, here with palpitations and accelerated ventricular arrhythmia. No syncope. Troponins negative x 2. ECHO with normal EF, normal Stress ECHO -continue beta clyde as per home dose -no evidence of ischemia at this time -Cardiology does not feel that she needs EP study at this time -advised pt to return to ER if has presyncope or syncope associated with her palpitations -f/u with Cardiology in office in 1 month -needs close follow up on her DMII as her HgbA1C is 12% here, has not had hyperglycemia here and was recently restarted on her insulin and Xigduo regimen at home -previously described blurry vision and tension HAs likely related to severely uncontrolled DMII and needs Ophthalmology follow up Documented By: Nuris Lowery
== END 2017-07-10 14:55 | disposition home or self-care (01) ==
LOC: C.EDB 21:22 → C.MED 07-09 01:15 → ENRESERV 07-09 01:29
PROVIDERS: ADMIT Internal Medicine; ATTEND Family Medicine
DX: R07.9 Chest pain, unspecified (principal); I49.8 Other specified cardiac arrhythmias; I25.10 Atherosclerotic heart disease of native coronary artery without angina pectoris; I25.2 Old myocardial infarction; E11.9 Type 2 diabetes mellitus without complications; Z79.82 Long term (current) use of aspirin; Z79.02 Long term (current) use of antithrombotics/antiplatelets; Z79.4 Long term (current) use of insulin; Z98.890 Other specified postprocedural states

== ENCOUNTER → 2017-07-16 | Outpatient (CLI) | payer OTHER ==
[~2017-07-16] MED LIST changes: +ALEN1TAB21 PO; -ALEN35TA42 PO
== END | disposition home or self-care (01) ==
LOC: C.MAMM 09:30
PROVIDERS: ATTEND Internal Medicine
DX: Z00.00 Encounter for general adult medical examination without abnormal findings (principal); M85.852 Other specified disorders of bone density and structure, left thigh; M85.851 Other specified disorders of bone density and structure, right thigh

== ENCOUNTER → 2017-08-22 | Outpatient (CLI) | payer OTHER ==
[~2017-08-22] MED LIST changes: -ALEN1TAB21 PO; +ALEN35TA42 PO
--- NOTE | 2017-08-22 15:14 | MAMMOGRAPHY REPORT ---
BILATERAL DIGITAL SCREENING MAMMOGRAM TOMOSYNTHESIS WITH CAD: 08/22/2017 CLINICAL HISTORY: Routine screening. TECHNIQUE: Breast tomosynthesis in addition to standard 2D mammography was performed. Current study was also evaluated with a Computer Aided Detection (CAD) system. COMPARISON: Comparison is made to exams dated: 07/05/2016 mammogram and 06/24/2015 mammogram. BREAST COMPOSITION: There are scattered areas of fibroglandular density in both breasts. FINDINGS: No suspicious masses, calcifications, or areas of architectural distortion are noted in ei ther breast. There has been no significant interval change compared to prior exams. Bilateral asymme tries and scattered bilateral benign-appearing calcifications are not significantly changed. IMPRESSION: ACR BI-RADS CATEGORY 2: BENIGN There is no mammographic evidence of malignancy. A 1 year screening mammogram is recommended. The pa tient will receive written notification of the results. Approximately 10% of breast cancers are not detected with mammography. A negative mammographic report should not delay biopsy if a clinically suggestive mass is present. Nati Adames M.D. ah/:08/22/2017 12:04:39 Business Sales Consultant: Jacobo LOUIS(R)(M), [facility] letter sent: Normal 1/2 BI-RADS Code: ACR BI-RADS Category 2: Benign
== END | disposition home or self-care (01) ==
LOC: C.MAMM 09:41
PROVIDERS: ATTEND Internal Medicine
DX: Z12.31 Encounter for screening mammogram for malignant neoplasm of breast (principal)

== ENCOUNTER → 2017-09-30 | Outpatient (CLI) | payer OTHER ==
[2017-09-30 10:06] LABS: ALBUMIN 3.6 gm/dl (3.4-5.0); ALT/SGPT 36 U/L (12-78); AST/SGOT 17 U/L (15-37); BLOOD UREA NITROGEN 16 mg/dl (7-18); CALCIUM 8.3 mg/dl (8.5-10.1); CARBON DIOXIDE 30 mmol/L (21-32); CHOLESTEROL 97 mg/dl (0-200); CREATININE 0.52 mg/dl (0.60-1.20); GLUCOSE 104 mg/dl (70-99); POTASSIUM 4.2 mmol/L (3.5-5.1); SODIUM 140 mmol/L (136-145)
[2017-09-30 10:09] LABS: ALKALINE PHOSPHATASE 71 U/L (45-117); LDL CHOLESTEROL CALCULATED 55 mg/dl; TOTAL PROTEIN 6.9 gm/dl (6.4-8.2)
== END | disposition home or self-care (01) ==
LOC: C.LAB1850 08:43
PROVIDERS: ATTEND Internal Medicine
DX: Z00.00 Encounter for general adult medical examination without abnormal findings (principal); E11.65 Type 2 diabetes mellitus with hyperglycemia; M85.80 Other specified disorders of bone density and structure, unspecified site; E78.5 Hyperlipidemia, unspecified

== ENCOUNTER → 2017-10-04 | Outpatient (CLI) | payer OTHER ==
[2017-10-04 14:40] LABS: CREATININE RANDOM URINE 21.1 mg/dl
== END | disposition home or self-care (01) ==
LOC: C.LAB1850 11:12
PROVIDERS: ATTEND Physician Assistant
DX: E11.9 Type 2 diabetes mellitus without complications (principal)

== ENCOUNTER → 2018-01-15 | Outpatient (CLI) | payer OTHER ==
[2018-01-15 13:21] LABS: HEMOGLOBIN A1C 10.5 % (4.5-5.6)
== END ==
LOC: C.LAB1850 12:19
PROVIDERS: ATTEND Physician Assistant
DX: E11.65 Type 2 diabetes mellitus with hyperglycemia (principal)